=== PATIENT | male | born 1975 | race Caucasian/White ===

== ENCOUNTER 2023-07-20 12:50 | Inpatient (IN) | payer MEDICARE, MEDICAID ==
[~2023-07-20] VITALS: Ht 172.7 cm; Wt 85.0 kg
[2023-07-20] MEDS ORDERED: METHYLPREDNISOLONE SOD SUCC 40MG VIAL IV ONE (13:45)
[2023-07-20] MEDS ORDERED: METHYLPREDNISOLONE SOD SUCC 125MG/2ML (ACT-O-VIAL) IV SCH (13:45)
[2023-07-20] MEDS ORDERED: IPRATROPIUM/ALBUTEROL 0.5-3(2.5)MG/3ML NEB HHN ONE ×2 (13:45→17:45)
[2023-07-20 13:55] VITALS: PULSE 88; RESP 20; O2SAT 97
[2023-07-20 13:56] LABS: HEMOGLOBIN. 14.4 g/dL (14.0-18.0); MEAN CORPUSCULAR HEMOGLOBIN 30.1 pg (28.0-32.0); MEAN CORPUSCULAR HGB CONC 32.8 g/dL (31.0-37.0); MEAN CORPUSCULAR VOLUME 91.9 fL (80.0-94.0); MEAN PLATELET VOLUME 8.9 fl (7.4-10.4); PLATELET 250 x1000/uL (130-400); RED BLOOD CELL COUNT 4.79 mill/uL (4.7-6.1); RED CELL DISTRIBUTION WIDTH 13.4 % (11.6-14.6)
[2023-07-20 13:58] LABS: BG BASE EXCESS 0.5 mmol/L (-2.0-2.0); BG CARBOXYHEMOGLOBIN 0.7 % (0.5-1.5); BG DEOXYHEMOGLOBIN 3.8 % (0.0-5.0); BG HCO3 ACT 27.5 mmol/L (22.0-26.0); BG METHEMOGLOBIN 0.4 % (0.0-1.5); BG OXYGEN SATURATION 96.2 % (92.0-98.5); BG OXYHEMOGLOBIN 95.1 % (94.0-97.0); BG PCO2 53.4 mmHg (35.0-45.0); BG SAMPLE SITE RIGHT RADIAL; BG TOTAL HEMOGLOBIN 15.3 g/dL (12.0-18.0); BG VENT MODE NASAL CANNULA
[2023-07-20 14:10] LABS: DIFFERENTIAL COMMENT 1
[2023-07-20 14:18] LABS: CHLORIDE 99 mEq/L (98-107); INDEX HEMOLYSI 1 (1-3); INDEX ICTERIC 1 (1-4); INDEX LIPEMIC 1 (1-3); POTASSIUM 4.5 mEq/L (3.5-5.1); SODIUM 133 mEq/L (136-145)
[2023-07-20 14:28] LABS: ALANINE AMINOTRANSFERASE 27 IU/L (13-61); ALBUMIN 3.8 g/dL (3.4-5.0); ASPARTATE AMINOTRANSFERASE 24 IU/L (15-37); BILIRUBIN TOTAL 0.3 mg/dL (0.1-1.0); CALCIUM 8.7 mg/dL (8.5-10.1); CARBON DIOXIDE 33 mEq/L (21-32); CREATININE 0.8 mg/dL (0.6-1.3); GLUCOSE 166 mg/dL (70-105); NT PRO B-TYPE NATRIURETIC PEP 55 pg/mL (5-125); UREA NITROGEN BLOOD 18 mg/dL (7-21)
[2023-07-20 14:30] LABS: PLATELET ESTIMATE NORMAL
[2023-07-20 18:25] VITALS: PULSE 87; RESP 18; O2SAT 96
[2023-07-20] MEDS ORDERED: ONDANSETRON HCL 4MG/2ML INJ IV PRN (22:00)
[2023-07-20] MEDS ORDERED: ACETAMINOPHEN 325MG TABLET PO PRN (22:00)
[2023-07-20] MEDS: METHYLPREDNISOLONE SOD SUCC 40MG/ML (ACT-O-VIAL) IV SCH (23:50)
[2023-07-21] MEDS ORDERED: IPRATROPIUM/ALBUTEROL 0.5-3(2.5)MG/3ML NEB HHN SCH
[2023-07-21] MEDS: METHYLPREDNISOLONE SOD SUCC 40MG/ML (ACT-O-VIAL) IV SCH ×2 (06:56→13:55)
[2023-07-21 08:00] VITALS: BP 146/87; PULSE 98; RESP 20; TEMP 97.6
[2023-07-21 08:25] VITALS: PULSE 95; RESP 18
[2023-07-21] MEDS ORDERED: ATROV INH (10:41)
[2023-07-21] MEDS ORDERED: TEZE210P (10:41)
[2023-07-21] MEDS ORDERED: ALBU4TAB6 PO (10:41)
[2023-07-21] MEDS ORDERED: UMEC62.5 INH (10:41)
[2023-07-21] MEDS ORDERED: SODI3VIA INH (10:41)
[2023-07-21] MEDS ORDERED: ALBU4TAB6 MT (10:48)
[2023-07-21] MEDS ORDERED: WARF4TAB71 MT (10:48)
[2023-07-21] MEDS ORDERED: SACU1TAB7 MT (10:48)
[2023-07-21] MEDS ORDERED: SPIR25TA MT (10:48)
[2023-07-21] MEDS ORDERED: EMPA25TA MT (10:48)
[2023-07-21 12:00] VITALS: BP 134/90; PULSE 94; RESP 20; TEMP 97.5
[2023-07-21] MEDS ORDERED: FAMOTIDINE 20MG TABLET PO SCH (21:00)
== END 2023-07-21 14:41 | disposition left against medical advice (07) | DRG 189 ==
LOC: ER 13:06 → 7WST 17:33 → EDBEDREQTM 17:38 → EDBEDREQ 17:38
PROVIDERS: ADMIT Internal Medicine; ATTEND Internal Medicine
DX: J96.20 Acute and chronic respiratory failure, unspecified whether with hypoxia or hypercapnia (principal); J44.1 Chronic obstructive pulmonary disease with (acute) exacerbation
CPT/HCPCS: 36415; 36600; 71045; 80053; 82375; 82805; 83880; 85025; 93005; 94640; 99285; C1893; J2920; J2930